=== PATIENT | female | born 1930 | race Caucasian/White ===

== ENCOUNTER 2018-01-30 12:13 | Emergency (ER) | payer MEDICARE, OTHER ==
[~2018-01-30] VITALS: Ht 149.9 cm; Wt 54.4 kg
[~2018-01-30 12:13] MED LIST: ALEVE220 MG PO; AMOXICILLIN500 M1 PO; ANTIVERT25 MG PO; APAP500 PO; ASPIRIN EC81 M1 PO; ATORVASTATIN CA40 MG PO; CALCIUM 1,0001 EACH PO; CALCIUM 600 +1 EAC1 PO; COZAAR 25 MG TA25 M1 PO; CRESTOR10 MG PO; FLEXERIL PO; FLONASE 0.05%50 MCG NASAL; FOLBIC RF TABL1 EACH PO; GLUCOPHAGE1000 MG PO; GLUCOSAMINE HC500 MG PO; HYDROCODON-ACE1 EAC7 PO; HYDROCODON-ACE1 EACH PO; LISINOPRIL20 MG PO; LISINOPRIL40 MG PO; LUMIGAN2.5 M1 OP; MAGNESIUM GLUC500 M1 PO; MAGOX 400400 MG PO; MEDROLDOSEPACK PO; MOBIC15 MG PO; NEXIUM40 MG PO; NORVASC2.5 MG PO; OMEPRAZOLE 20 M20 MG PO; PERCOCET 5-3251 EACH PO; PRILOSEC20 MG PO; ROBAXIN500 MG PO; TOPROL XL25 MG PO; TOPROL XL50 MG PO; TRANSDERM-SCO1 PATC1 TD; VITAMIN B-1100 M1 PO; ZOCOR20 MG PO; ZOFRAN 4 MG ORAL4 MG PO; ZOLOFT 50 MG TA50 M1 PO
[2018-01-30] MEDS ORDERED: TOPROL XL25 MG PO (12:28)
[2018-01-30 12:56] LABS: ABSOLUTE EOSINOPHILS 0.1 thou/uL (0.0-0.7); ABSOLUTE LYMPHOCYTES 2.2 thou/uL (0.8-5.3); ABSOLUTE MONOCYTES 0.3 thou/uL (0.0-1.2); ABSOLUTE NEUTROPHILS 3.5 thou/uL (1.6-8.1); BASOPHILS 0.8 %; EOSINOPHILS 1.4 %; HEMATOCRIT 37.1 % (37.0-47.0); HEMOGLOBIN 12.6 gm/dL (12.0-15.0); LYMPHOCYTES 35.6 %; MCHC 33.9 g/dL (28.0-37.0); MCV 85.7 fL (80.0-100.0); MONOCYTES 5.4 %; MPV 6.8 fl. (7.2-11.1); NUCLEATED RBCS 0 /100WBC; PLATELET COUNT* 292 thou/uL (150-400); POLYS 56.8 %; RBC 4.33 mil/uL (4.20-5.00); RDW-CV 13.9 % (10.5-14.5); WBC 6.1 thou/uL (4.0-11.0)
[2018-01-30 13:02] LABS: CALCIUM 9.7 mg/dL (8.5-10.1); CREATININE 0.7 mg/dL (0.6-1.3); POTASSIUM 3.5 mmol/L (3.5-5.1)
[2018-01-30 14:16] LABS: ESR (SEDRATE) 8 mm/hr (0-30)
[2018-01-30 14:38] VITALS: BP 155/78
== END 2018-01-30 14:39 | disposition home or self-care (01) ==
LOC: M.ERS 12:13
PROVIDERS: Physician Assistant
DX: R20.2 Paresthesia of skin (principal); I10 Essential (primary) hypertension; Z88.6 Allergy status to analgesic agent; Z88.8 Allergy status to other drugs, medicaments and biological substances; Z90.710 Acquired absence of both cervix and uterus; Z96.659 Presence of unspecified artificial knee joint

== ENCOUNTER → 2018-06-07 | Outpatient (CLI) | payer MEDICARE, OTHER ==
[~2018-06-07] MED LIST changes: +ULTRAM 50MG TAB50 MG PO
== END ==
LOC: M.RAD 06-03 14:50
DX: Z12.31 Encounter for screening mammogram for malignant neoplasm of breast (principal); I10 Essential (primary) hypertension

== ENCOUNTER 2018-06-13 06:43 | Emergency (ER) | payer MEDICARE, OTHER ==
[~2018-06-13] VITALS: Ht 152.4 cm; Wt 52.6 kg
[~2018-06-13 06:43] MED LIST changes: -ULTRAM 50MG TAB50 MG PO
[2018-06-13 07:48] LABS: ABSOLUTE EOSINOPHILS 0.1 thou/uL (0.0-0.7); ABSOLUTE LYMPHOCYTES 0.9 thou/uL (0.8-5.3); ABSOLUTE MONOCYTES 0.4 thou/uL (0.0-1.2); ABSOLUTE NEUTROPHILS 4.9 thou/uL (1.6-8.1); BASOPHILS 0.6 %; EOSINOPHILS 1.7 %; HEMATOCRIT 35.9 % (37.0-47.0); LYMPHOCYTES 13.8 %; MCH 28.6 pg (26.0-34.0); MCHC 33.5 g/dL (28.0-37.0); MCV 85.4 fL (80.0-100.0); MONOCYTES 5.9 %; NUCLEATED RBCS 0 /100WBC; PLATELET COUNT* 239 thou/uL (150-400); RBC 4.21 mil/uL (4.20-5.00); RDW-CV 13.4 % (10.5-14.5); WBC 6.3 thou/uL (4.0-11.0)
[2018-06-13 07:54] LABS: CALCIUM 8.8 mg/dL (8.5-10.1); CREATININE 0.7 mg/dL (0.6-1.3); POTASSIUM 3.8 mmol/L (3.5-5.1)
[2018-06-13 07:59] LABS: ALBUMIN 3.4 g/dL (3.4-5.0); TOTAL BILIRUBIN 0.5 mg/dL (<0.1-1.0); TOTAL PROTEIN 6.5 g/dL (6.4-8.2); URIC ACID* 4.3 mg/dL (2.6-7.2)
[2018-06-13] MEDS ORDERED: ULTRAM 50MG TAB50 MG PO (08:21)
[2018-06-13 08:44] VITALS: BP 173/76
== END 2018-06-13 08:44 | disposition home or self-care (01) ==
LOC: M.ERS 06:43
PROVIDERS: Family Medicine
DX: M79.671 Pain in right foot (principal); I10 Essential (primary) hypertension; Z90.710 Acquired absence of both cervix and uterus; Z88.6 Allergy status to analgesic agent; Z88.8 Allergy status to other drugs, medicaments and biological substances